=== PATIENT | female | born 1980 | race Caucasian/White ===

== ENCOUNTER 2018-05-13 06:01 | Inpatient (IN) | payer OTHER ==
--- NOTE | 2018-05-08 12:38 | Diagnostic Imaging Report ---
PROCEDURE: Frontal and lateral views of the chest. COMPARISON: None. INDICATIONS: PRE OP FOR HYSTERECTOMY FINDINGS: Lines/tubes: None. Lungs: The lungs are well inflated and clear. There is no evidence of pneumonia or pulmonary edema. Pleura: There is no pleural effusion or pneumothorax. Heart and mediastinum: The heart and the mediastinum are normal. Bones: No acute bony abnormality. IMPRESSION: No acute cardiopulmonary disease. Dictated by: Jose Marie M.D. on 05/08/2018 at 12:43 Electronically approved by: Jose Marie M.D. on 05/08/2018 at 12:43
[2018-05-10 11:30] LABS: CLARITY,URINE SL CLOUDY (CLEAR); COLOR,URINE YELLOW (YELLOW); LEUKOCYTE ESTERASE ,URINE NEGATIVE (NEGATIVE); NITRITE,URINE NEGATIVE (NEGATIVE)
[2018-05-10 11:31] LABS: BILIRUBIN,URINE NEGATIVE (NEGATIVE); KETONES,URINE NEGATIVE (NEGATIVE); PROTEIN,URINE DIPSTICK NEGATIVE (NEGATIVE); URINE UROBILINOGEN 0.2 mg/dL (0.2 - 1)
[2018-05-10 11:39] LABS: ALANINE AMINOTRANSFERASE 55 IU/L (0-55); ALBUMIN 4.3 g/dL (3.5-5.0); ALKALINE PHOSPHATASE 48 IU/L (40-150); BILIRUBIN,DIRECT 0.2 mg/dL (0.0-0.5); HIV 1&2 AB SCREEN NON-REACTIVE (NONREACTIVE)
[2018-05-10 11:40] LABS: BASOPHILS # (AUTO) 0.1 (0.0-0.1); BASOPHILS % 0.8 % (0.0-1.0); EOSINOPHILS # (AUTO) 0.1 (0.0-0.4); EOSINOPHILS % 1.9 % (0.0-6.0); HEMATOCRIT 40.8 % (34.2-44.1); HEMOGLOBIN 13.5 g/dL (12.0-16.0); LYMPHOCYTES # (AUTO) 1.7 (1.0-3.2); LYMPHOCYTES % 27.4 % (18.0-39.1); MEAN CORPUSCULAR HEMOGLOBIN 28.5 pg (28-32); MEAN CORPUSCULAR HGB CONC 33.1 g/dL (31-35); MEAN CORPUSCULAR VOLUME 86.1 fL (81-99); MONOCYTES # (AUTO) 0.7 (0.2-0.8); MONOCYTES % 10.7 % (4.4-11.3); NEUTROPHILS # (AUTO) 3.7 (2.1-6.9); NEUTROPHILS % 58.9 % (38.7-80.0); PLATELET COUNT 275 x10e3/uL (140-360); RED BLOOD COUNT 4.74 x10e6/uL (3.6-5.1); RED CELL DISTRIBUTION WIDTH 14.6 % (11.7-14.4)
[2018-05-13] VITALS (7 sets, daily range): BP systolic 128–136; BP diastolic 62–76
[~2018-05-13] VITALS: Ht 149.9 cm; Wt 78.5 kg
[~2018-05-13 06:01] MED LIST: FERROUS FUMARA324 MG PO
[2018-05-13] MEDS ORDERED: CEFOXITIN SOD 1 GM VIAL ONE (07:30)
[2018-05-13] MEDS ORDERED: ACETAMINOPHEN 1000 MG/100 ML 100 ML IV ONE (10:20)
[2018-05-13] MEDS ORDERED: HYDROMORPHONE 0.2MG/ML-SOD CHL 30ML PCA SYRINGE IV ONE (10:58)
[2018-05-13] MEDS ORDERED: HYDROMORPHONE 1MG/1ML INJ ONE ×2 (11:12→11:30)
[2018-05-13] MEDS ORDERED: NALOXONE HCL INJ 0.4 MG/ML AMP IV PRN (11:15)
[2018-05-13] MEDS ORDERED: ONDANSETRON HCL INJ 2 MG/ML VIAL IV PRN (11:15)
[2018-05-13] MEDS ORDERED: HYDROMORPHONE 0.2MG/ML-SOD CHL 30ML PCA SYRINGE IV PRN (11:15)
[2018-05-13] MEDS ORDERED: ZOLPIDEM TARTRATE 5 MG TAB PO PRN (11:15)
[2018-05-13] MEDS ORDERED: BISACODYL 5 MG TAB EC PO PRN (11:15)
[2018-05-13] MEDS ORDERED: DOCUSATE SODIUM 100 MG CAP PO PRN (11:15)
[2018-05-13] MEDS ORDERED: DEXTROSE 5%/LACTATED RINGERS 1,000 ML IV ONE (11:53)
[2018-05-13] MEDS ORDERED: DEXAMETHASONE SOD PHOS INJ 4 MG/ML VIAL ONE (14:10)
[2018-05-13] MEDS ORDERED: ONDANSETRON HCL INJ 2 MG/ML VIAL ONE (14:10)
[2018-05-13] MEDS ORDERED: LIDOCAINE HCL 2% LOCAL INJ 5 ML SDV VIAL INJ ONE (14:10)
[2018-05-13] MEDS ORDERED: ROCURONIUM BROMIDE 10 MG/ML 5ML VIAL ONE (14:10)
[2018-05-13] MEDS ORDERED: SEVOFLURANE INHAL SOLN 250 ML PEN BTL ONE (14:10)
[2018-05-13] MEDS ORDERED: NEOSTIGMINE 5 MG/5ML SYR ONE (14:10)
[2018-05-13] MEDS ORDERED: PROPOFOL IV EMULSION 10 MG/ML 20 ML VIAL ONE (14:10)
[2018-05-13] MEDS ORDERED: GLYCOPYRROLATE INJ 1MG/ 5 ML SYR ONE (14:10)
[2018-05-13] MEDS: DIPHENHYDRAMINE HCL 25 MG CAP PO PRN ×2 (15:49→22:14)
[2018-05-13] MEDS: KETOROLAC TROMETHAMINE 30 MG/ML VIAL IM PRN ×2 (15:49→22:14)
--- NOTE | 2018-05-13 16:26 | Operative Report ---
DATE OF PROCEDURE: May 13, 2018 PREOPERATIVE DIAGNOSIS: A 37-year-old white female, 2, para 2, with frequent heavy, painful periods and large fibroid uterus affecting her lifestyle and causing anemia. POSTOPERATIVE DIAGNOSES 1. A 37-year-old white female, 2, para 2, with frequent heavy, painful periods and large fibroid uterus affecting her lifestyle and causing anemia. 2. Extensive pelvic and abdominal adhesions. OPERATIVE PROCEDURES 1. Examination under anesthesia. 2. Total abdominal hysterectomy. 3. Bilateral salpingectomy. 4. Extensive abdominal and pelvic adhesiolysis, which took more than an hour and was very difficult. SENIOR BUSINESS MANAGER: Dr. Noel ANESTHESIA: General. FINDINGS AT THE TIME SURGERY: On EUA, the cervix looked normal. Her Pap was negative. Uterus was enlarged, about 14 weeks' size. No adnexal masses felt. On laparotomy, there were extensive adhesions between the abdominal wall, pelvis, bladder, in front of the uterus and cervix, very dense and difficult to see anything in the pelvis. Both ovaries looked normal. Had some fimbrial cysts on the right fallopian tube. The tubes looked congested; therefore, we removed both tubes and saved the ovaries. Zuñiga catheter in the bladder draining clear urine. The uterus was enlarged about 14 weeks' size. ESTIMATED BLOOD LOSS: About 300 mL. URINE: Clear in the Zuñiga bag. SPECIMENS REMOVED: Uterus and cervix along with fibroid uterus and both fallopian tubes. PROCEDURE IN DETAIL: The patient was brought to the operating room and put in the supine position, and general anesthesia was given without any problems. After adequate anesthesia, the patient was examined under anesthesia. The findings are as dictated above. Then she was prepped and draped in routine fashion, and we proceeded with the surgery. We made a low transverse Pfannenstiel skin incision over the previous scar. She had 2 previous C-sections in the past. Then taken down to the fascia. The tissues were very, very vascular and wherever you touch, she starts bumping and bleeding. The fascia was opened in a transverse fashion. The rectus muscles were stuck together like cement. They were in a vertical fashion, and we entered the abdominal cavity without any problems. I could not put in the O'Luis retractor because there were a lot of adhesions between the anterior abdominal wall, lower segment of the uterus, and the cervix and pelvis, completely glued together like cement. It was a very difficult dissection, gently dissected. Then put in the O'Ekthjp-E-Zzmkjowf retractor and packed up and put in the upper blade. The lower blade could not be put in. Then I held the fundus of the uterus with a [place] clamp. The ovaries looked fine. I tried to do the dissection from the top. The fallopian tube and ovarian ligament were clamped close to the uterus with a LigaSure, cauterized and cut. That was done on both sides. Then could see the round ligament stumps that were clamped close to the uterus, cauterized and cut on both sides. Then the tissue in between the round ligament and the tube and ovarian ligament that is part of the broad ligament was clamped with a LigaSure, cauterized and cut. Now, the fundus was free. The lower part was stuck with adhesions. Gently the adhesions from the front of the uterus to the abdominal wall. Now we were able to put the lower blade. Then the bladder flap of the peritoneum was opened in a transverse fashion. Again, the bladder was stuck to the front of the lower segment and the cervix like cement. Gently started dissecting with sharp dissection. The urine is clear. This was done step by step each time. Then posteriorly tried to dissect the peritoneum and push it down. The ureters looked far away. The uterine vessels on either side were clamped with a Collin clamp, cut towards the uterus and suture ligated doubly using 1-0 Vicryl. The suture was tied snug and cut short. The uterine vessels were very tortuous and engorged, probably because of the fibroid uterus. That is why we had to take 2 bites. Again, dissected out in the front, and the bladder was dissected down somewhat, but it was very difficult to dissect. Therefore, the fundus of the uterus was removed, dissected out. The fundus of the uterus along with the fibroids removed so that we could see in the pelvis. We held the posterior wall and the anterior wall with Ken clamps. Now, we dissected the bladder down. Then the cardinal ligaments on either side were clamped with a straight Collin clamp, cut toward the uterus and suture ligatured with a transfixation suture using 1-0 Vicryl. Suture was tied snug and cut short. We had to take 2 bites on either side because of the long cervix. Then the bladder went down very well. The ureters were far away. The uterosacral ligaments on either side were clamped with curved Collin clamp, cut towards the uterus and cervix, and suture ligated the stumps with transfixation suture using 1-0 Vicryl. The suture was tied snug and held long with the hemostat, then removed. We planned to do subtotal because the cervix was long. We removed part of the cervix and held the cervix with long Collin clamps but then realized the cervix was not as long as we thought. The bladder went down very well. Therefore, we decided to remove the whole cervix. After dissecting the bladder down somewhat, we applied right-angle clamps on either side of the cervix. We then cut towards the cervix and then the anterior wall and posterior wall and removed the rest of the cervix. Then the vaginal wall angles were suture ligatured using #1 Vicryl with transfixation suture. The suture was tied snug and held long with a hemostat. Then the rest of the vaginal wall was closed with figure-of-8 sutures using #1 Vicryl. All of the sutures were tied snug and checked for hemostasis. All the stumps looked dry. The urine was clear in the Zuñiga bag. The ureters seemed to be far away. Now irrigated the pelvis. The hemostasis was satisfactory. After anchoring the stumps of the uterosacral ligaments into the vaginal vault, all the sutures were cut short. We removed the O'Wrlfwy-D-Wdjjfvon retractor. Checked again for the hemostasis. After making sure, we removed all the laps and closed the abdominal wall in layers. The fascia was closed with #1 Vicryl using 2 sutures, starting at the corners and ending in the midline. The subcutaneous tissue was approximated with 2-0 Vicryl with continuous stitches and 3-0 Vicryl with continuous stitches. The skin was approximated with 4-0 Vicryl using subcuticular stitches. The patient tolerated the procedure well, but she was oozing and bleeding everywhere and every tissue where you touch with a lot of scar tissue that made it a very difficult dissection and surgery. At the end of the procedure, the instruments and lap counts were correct. Zuñiga catheter in the bladder was draining clear urine. The patient's vital signs were stable. She was moved to the recovery room in stable condition. Job#: [id number]
[2018-05-13] MEDS ORDERED: MIDAZOLAM HCL 2 MG/2 ML VIAL ONE (17:26)
[2018-05-13] MEDS ORDERED: FENTANYL CITRATE/PF 100MCG/2 ML INJ ONE (17:26)
[2018-05-14] VITALS: BP 118/71
[2018-05-14 04:00] VITALS: BP 135/65
[2018-05-14 07:30] VITALS: BP 129/65
[2018-05-14 07:55] VITALS: BP 129/65
[2018-05-14] MEDS ORDERED: IBUPROFEN 400 MG TAB PO PRN (09:45)
[2018-05-14 09:59] LABS: BASOPHILS # (AUTO) 0.1 (0.0-0.1); BASOPHILS % 0.5 % (0.0-1.0); EOSINOPHILS % 0.2 % (0.0-6.0); HEMATOCRIT 33.3 % (34.2-44.1); HEMOGLOBIN 11.1 g/dL (12.0-16.0); LYMPHOCYTES # (AUTO) 1.7 (1.0-3.2); LYMPHOCYTES % 17.7 % (18.0-39.1); MEAN CORPUSCULAR HEMOGLOBIN 29.3 pg (28-32); MEAN CORPUSCULAR HGB CONC 33.3 g/dL (31-35); MEAN CORPUSCULAR VOLUME 87.9 fL (81-99); MONOCYTES % 10.1 % (4.4-11.3); NEUTROPHILS # (AUTO) 6.7 (2.1-6.9); NEUTROPHILS % 70.4 % (38.7-80.0); PLATELET COUNT 227 x10e3/uL (140-360); RED BLOOD COUNT 3.79 x10e6/uL (3.6-5.1); RED CELL DISTRIBUTION WIDTH 14.3 % (11.7-14.4)
[2018-05-14 10:12] LABS: ALANINE AMINOTRANSFERASE 40 IU/L (0-55); ALBUMIN 3.8 g/dL (3.5-5.0); ALBUMIN/GLOBULIN RATIO 1.4 (0.8-2.0); ALKALINE PHOSPHATASE 37 IU/L (40-150); ANION GAP 12.4 mmol/L (8-16); BLOOD UREA NITROGEN 14 mg/dL (7-26); BUN/CREATININE RATIO 16 (6-25); CALCIUM 8.8 mg/dL (8.4-10.2); CARBON DIOXIDE 25 mmol/L (22-29); CHLORIDE 102 mmol/L (98-107); CREATININE, SERUM 0.85 mg/dL (0.57-1.11); EST GLOMERULAR FILTRATION RATE > 60 ML/MIN (60-); GLUCOSE 103 mg/dL (74-118); POTASSIUM 3.4 mmol/L (3.5-5.1); SODIUM 136 mmol/L (136-145)
[2018-05-14] MEDS: HYDROCODONE/APAP 5MG-325MG TAB PO PRN ×2 (10:45→15:38)
[2018-05-14 12:15] VITALS: BP 123/70
[2018-05-14] MEDS: KETOROLAC TROMETHAMINE 30 MG/ML VIAL IM PRN (13:57)
[2018-05-14 15:00] VITALS: BP 123/56
[2018-05-14] MEDS ORDERED: HEMOCYTE PLUS1 EACH PO (15:43)
[2018-05-14] MEDS ORDERED: COLACE100 MG PO (15:46)
[2018-05-14] MEDS ORDERED: MOTRIN200 MG PO (15:46)
[2018-05-14] MEDS ORDERED: NORCO 5-325 TA1 EACH PO (15:55)
== END 2018-05-14 16:16 | disposition home or self-care (01) | DRG 743 ==
LOC: OR 06:01 → PACU V 11:08 → OBSVTOIN 11:08 → IMCU 12:25 → UNDODISOB 18:21
PROVIDERS: ADMIT Specialist; ATTEND Specialist
PROC: 0UT70ZZ Resection of Bilateral Fallopian Tubes, Open Approach (ICD-10-PCS; 2018-05-13)
PROC: 0DNW0ZZ Release Peritoneum, Open Approach (ICD-10-PCS; 2018-05-13)
PROC: 0UTC0ZZ Resection of Cervix, Open Approach (ICD-10-PCS; 2018-05-13)
PROC: 0UT90ZZ Resection of Uterus, Open Approach (ICD-10-PCS; principal; 2018-05-13 08:30)
DX: D25.9 Leiomyoma of uterus, unspecified (principal); N92.0 Excessive and frequent menstruation with regular cycle; N73.6 Female pelvic peritoneal adhesions (postinfective)
CPT/HCPCS: 36415; 71046; 80053; 80076; 81003; 84702; 85025; 86850; 86870; 86880; 86900; 86905; 87390; 88307; 93005; 99001; G0433; G0435; J0694; J1100; J1170; J1885; J2001; J2250; J2405; J7120